=== PATIENT | female | born 1965 | race Caucasian/White ===

== ENCOUNTER → 2016-08-06 | Outpatient (CLI) | payer OTHER ==
[2016-08-06 16:03] LABS: BILIRUBIN,URINE NEGATIVE (NEG); CLARITY,URINE CLEAR (CLEAR); GLUCOSE, URINE (UA) NEGATIVE (NEG); LEUKOCYTE ESTERASE ,URINE SMALL (NEG); NITRATE,URINE NEGATIVE (NEG); OCCULT BLOOD,URINE NEGATIVE (NEG); PROTEIN,URINE NEGATIVE (NEG); RBC,URINE 0-1 /hpf; SQUAMOUS EPITHELIAL CELL,UR RARE; URINE SAMPLE TYPE CLEAN CATCH URINE; UROBILINOGEN,URINE 0.2 mg/dL (0.2)
[2016-08-06 16:04] LABS: BACTERIA,URINE FEW
== END ==
LOC: LAB 15:32
PROVIDERS: ATTEND Nurse Practitioner Family
DX: R30.0 Dysuria (principal)
CPT/HCPCS: 81001; 87077; 87088; 87186

== ENCOUNTER → 2016-09-30 | Outpatient (CLI) | payer OTHER ==
[2016-09-30 16:49] LABS: FREE T4 (FREE THYROXINE) 1.01 ng/dL (0.93-1.71)
== END ==
LOC: LAB 14:16
PROVIDERS: ATTEND Nurse Practitioner Family
DX: E03.9 Hypothyroidism, unspecified (principal)
CPT/HCPCS: 36415; 84439; 84443

== ENCOUNTER → 2016-11-22 | Outpatient (CLI) | payer OTHER ==
[2016-11-22 14:38] LABS: URINE SAMPLE TYPE CLEAN CATCH URINE
[2016-11-22 14:39] LABS: BILIRUBIN,URINE NEGATIVE (NEG); CLARITY,URINE CLEAR (CLEAR); COLOR,URINE YELLOW; GLUCOSE, URINE (UA) NEGATIVE (NEG); NITRATE,URINE NEGATIVE (NEG); OCCULT BLOOD,URINE NEGATIVE (NEG); PROTEIN,URINE NEGATIVE (NEG); UROBILINOGEN,URINE 0.2 EU/dL (0.2)
[2016-11-22 14:51] LABS: BLOOD UREA NITROGEN 12 mg/dL (7-22); CALCIUM 9.7 mg/dL (8.7-10.7); EST GLOMERULAR FILTRATION > 60 (>60 ml/min/1.73m(2)); SERUM ALBUMIN 4.5 g/dL (3.5-4.8)
== END ==
LOC: MOB LAB 12:48
PROVIDERS: ATTEND Nurse Practitioner Family
DX: R60.1 Generalized edema (principal); R51 Headache
CPT/HCPCS: 36415; 80053; 81003

== ENCOUNTER 2016-11-25 08:32 | Day surgery (SDC) | payer OTHER ==
[~2016-11-25 08:32] MED LIST: LIDOCAINE W/ SODIUM BICARB 0.5 ML SYR ONE; Lactated Ringers 1,000 ML PRIMARY IV ONE
--- NOTE | 2016-11-25 10:08 | GEN.OPNOTE ---
EGD / Colonoscopy Report Surgery Date: 11/25/16 Preoperative Diagnosis: GERD. Colon cancer screening. Postoperative Diagnosis: Same. Procedure: #1 esophagogastroduodenoscopy with biopsy. #2 complete colonoscopy. Surgeon: Alex Valdez MD Anesthesia Provider: Nora Rubin CRNA Anesthesia Type: MAC Indications: See preoperative diagnosis. Patient with chronic GERD. After she eats she has to clear her throat constantly. EGD Findings: Esophagus: [Visually normal] GE Junction : [Visually normal] Fundus : [Normal] Body : [Normal] Prepyloric : [Mild erythema] Small Intestine : [Normal] A lubricated flexible upper endoscope was inserted and passed through the esophagus and stomach into the duodenum. The duodenum and duodenal bulb were unremarkable. Pyloric channel was patent. There is some mild erythema in the antrum. Multiple biopsies were taken. Hemostasis was assured. The scope was retroflexed. The body and fundus of the stomach were unremarkable. The GE junction was unremarkable. The scope was withdrawn into the distal esophagus. Biopsies were taken at and above the Z line. Hemostasis was assured. The scope was withdrawn through the remainder of a normal-appearing esophagus and brought to the hypopharynx under suction completing that portion of the procedure. Colonoscopy Findings: Prep : [Very good] Cecum : [Normal] Ascending : [Normal] Transverse : [Normal] Sigmoid : [Normal] Rectum : [Normal] Digital Rectal Exam : [Normal] A lubricated flexible colonoscope was inserted and passed to the blind end of the cecum. The blind end of the cecum and ileocecal valve were clearly seen. Irrigation and the cecum was done to clear some retained stool. It was aspirated as the scope was withdrawn. The entire colonoscopy was normal without polyp, tumor, neoplastic mass, infectious or inflammatory process. The scope was withdrawn completing the procedure. Patient tolerated all aspects of the procedure well without complication. She was taken to outpatient surgery in stable condition. We will call the biopsy results when available. We will plan therapy and follow -up accordingly. She will be due for follow-up colonoscopy in 10 years time.
[2016-11-25 10:52] VITALS: RESP 12; TEMP 96.9
== END 2016-11-25 10:32 | disposition home or self-care (01) ==
LOC: SDSC 08:32
PROVIDERS: ATTEND Surgery
DX: K21.9 Gastro-esophageal reflux disease without esophagitis (principal); Z12.11 Encounter for screening for malignant neoplasm of colon
CPT/HCPCS: 43239; 45378; J2704; J7120

== ENCOUNTER → 2016-12-05 | Outpatient (CLI) | payer OTHER | LOC: LAB 16:07 | PROVIDERS: ATTEND Nurse Practitioner Family | DX: R60.0 Localized edema (principal) | CPT/HCPCS: 36415; 83880 ==

== ENCOUNTER → 2017-01-28 | Outpatient (CLI) | payer OTHER ==
--- NOTE | 2017-01-28 14:51 | EKG ---
[address] [address] Measurements Intervals [place] Rate: 84 P: 73 GA: 155 QRS: 94 QRSD: 100 T: 71 QT: 396 QTc: 437 Interpretive Statements SINUS RHYTHM BORDERLINE RIGHT AXIS DEVIATION [QRS AXIS > 90] Compared to ECG 01/28/2014 15:01:02 No significant changes Electronically Signed On 01-28-17 17:01:02 MDT by Fernando Gama [email or web address]
== END ==
LOC: MOB EKG 14:37
PROVIDERS: ATTEND Specialist
DX: I50.9 Heart failure, unspecified (principal)
CPT/HCPCS: 93005; 93010